=== PATIENT | female | born 2005 | race Two or more races ===

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

== ENCOUNTER 2025-02-02 11:18 | Observation (INO) | payer MEDICAID, SELFPAY ==
[2025-02-02] VITALS (11 sets, daily range): BP systolic 121–138; BP diastolic 77–89; PULSE 67–104; RESP 18–99; TEMP 36.6; O2SAT 99–100; BMI 39.6
[2025-02-02] MEDS: RINGERS LACTATED 1000 ML 1,000 ML 999 ML IV (11:45)
== END 2025-02-02 13:15 | disposition home or self-care (01) ==
PROVIDERS: Admitting Provider Obstetrics & Gynecology; PCP Nurse Practitioner Women's Health; Visit Provider Obstetrics & Gynecology
DX: Z34.03 Encounter for supervision of normal first pregnancy, third trimester (principal); Z3A.39 39 weeks gestation of pregnancy
CPT/HCPCS: 59899; G0378; J7120

== ENCOUNTER 2025-02-09 08:37 | Observation (INO) | payer MEDICAID, SELFPAY ==
[2025-02-09 08:45] VITALS: PULSE 66; O2SAT 99
[2025-02-09 08:47] VITALS: BP 126/83; PULSE 75
[2025-02-09 09:01] VITALS: BP 126/83; PULSE 75; RESP 18; RESP 99; TEMP 36.8; BMI 41.0
[2025-02-09 09:02] VITALS: RESP 18; TEMP 36.8; O2SAT 99
[2025-02-09] MEDS: RINGERS LACTATED 1000 ML 1,000 ML 999 ML IV (09:45)
[2025-02-09 09:46] VITALS: BP 126/86; PULSE 60
== END 2025-02-09 10:45 | disposition home or self-care (01) ==
PROVIDERS: Admitting Provider Obstetrics & Gynecology; Visit Provider Obstetrics & Gynecology
DX: O47.1 False labor at or after 37 completed weeks of gestation (principal); Z3A.40 40 weeks gestation of pregnancy
CPT/HCPCS: 59025; 59899; J7120

== ENCOUNTER 2025-02-09 21:29 | Inpatient (IN) | payer MEDICAID, SELFPAY ==
[2025-02-09] VITALS (17 sets, daily range): BP systolic 128–142; BP diastolic 78–95; PULSE 65–80; RESP 16–99; TEMP 36.6–36.8; O2SAT 98–100; BMI 40.8; BMI 40.9
[2025-02-09 23:31] LABS: Basophils # (Auto) 0.0 Thou/mm3 (0.0-0.2); Basophils % (Auto) 0 % (0-2.5); Eosinophils # (Auto) 0.0 Thou/mm3 (0.0-0.5); Eosinophils % (Auto) 0 % (0-10); Hematocrit 36.8 % (36.0-46.0); Hemoglobin 12.6 g/dL (12.0-16.0); Immature Granulocytes Auto 0.09 Thou/mm3 (0.00-0.00); Lymphocytes # (Auto) 2.7 Thou/mm3 (1.0-5.0); Lymphocytes % (Auto) 24 % (10-50); Mean Corpuscular HGB Conc 34.2 g/dl (31.0-37.0); Mean Corpuscular Hemoglobin 29.4 pg (25.0-35.0); Mean Corpuscular Volume 86 fL (80-100); Monocytes # (Auto) 0.7 Thou/mm3 (0.0-0.8); Monocytes % (Auto) 6 % (0-12); Neutrophils # (Auto) 7.8 Thou/mm3 (1.8-7.7); Neutrophils % (Auto) 69 % (37-80); Nucleated Red Blood Cell # 0.00 Thou/mm3 (0.00-0.00); Nucleated Red Blood Cell % 0 /100 WBC (0); Platelet Count 236 Thou/mm3 (140-440); RDW Standard Deviation 42.3 fL (36.4-46.3); Red Blood Count 4.29 Miln/mm3 (4.00-5.20); White Blood Count 11.4 Thou/mm3 (4.5-11.0)
[2025-02-09 23:54] LABS: Amphetamine/Metham Scrn,Ur OB Negative (Negative); Benzoylecgonine Screen, Ur OB Negative (Negative); Opiate Screen,Urine OB Negative (Negative); THC Screen,Urine OB Positive (Negative)
[2025-02-09 23:55] LABS: THC U Confirm* See Sep Rpt
[2025-02-10] VITALS (187 sets, daily range): BP systolic 94–208; BP diastolic 56–147; PULSE 57–149; RESP 17–20; TEMP 36.7–38; O2SAT 91–100
--- NOTE | 2025-02-10 00:05 | XR_ITS ---
Examination: Complete OB ultrasound greater than 14 weeks Date and time of exam: February 10, 2025, 0039 hours INDICATIONS: Patient in active labor today Findings: Viable intrauterine single fetus with single amniotic sac presentation Vertex Cardiac motion 130 bpm Placenta fundal grade 3 Umbilical cord insertion seen. Amniotic fluid index 6.0 cm Ovaries obscured by bowel gas. Composite estimated gestational age based on BPD, head circumference, abdominal circumference, femur length is 37 weeks 2 days Estimated weight 3044.7 g. Survey of intracranial anatomy, spinal anatomy, abdominal anatomy, four-chamber heart performed with no abnormalities identified. Impression: Viable intrauterine gestation vertex presentation.
[2025-02-10 00:15] LABS: Syphilis Nonreactive (Nonreactive)
[2025-02-10 01:33] LABS: Fibrinogen 519 mg/dL (175-375); INR 0.9 (0.9-1.3); Partial Thromboplastin Time 27.9 Seconds (22.0-36.0); Prothrombin Time 10.0 Seconds (9.0-12.2)
[2025-02-10 01:39] LABS: Alanine Aminotransferase < 7 U/L (10-49); Albumin, Serum 4.0 gm/dL (3.5-5.0); Albumin/Globulin Ratio 1.8 (1.2-2.2); Alkaline Phosphatase 147 U/L (46-116); Anion Gap 13 (7-16); Aspartate Amino Transferase 16 U/L (0-34); BUN/Creatinine Ratio 6 Ratio (12-20); Bilirubin,Total 0.4 mg/dL (0.3-1.2); Blood Urea Nitrogen < 5 mg/dL (9-23); Calcium 9.1 mg/dL (8.3-10.6); Calcium (Corrected) 9.1 mg/dL (8.5-10.1); Carbon Dioxide 19.5 mMol/L (20.0-31.0); Chloride 107 mMol/L (98-107); Creatinine (Component) 0.9 mg/dL (0.6-1.3); Estimated Creatinine Clearance 99.5 mL/min (>60); Globulin 2.2 gm/dL (2.3-3.5); Glucose 79 mg/dL (74-106); Osmolality,Calculated 273 (275-295); Potassium 3.7 mMol/L (3.4-5.1); Sodium 139 mMol/L (136-145); Total Protein 6.2 gm/dL (5.7-8.2); Uric Acid 5.8 mg/dL (3.1-7.8); eGFR > 60 See Note
[2025-02-10 02:29] LABS: Bilirubin,Urine Negative (Negative); Blood,Urine Negative (Negative); Clarity,Urine Clear (Clear/Hazy); Collection Type, Urine Clean Catch; Color,Urine Lt-Yellow (Lt Yel-Yel); Glucose, Urine Negative (Negative); Ketones,Urine 2+ (Negative); Leukocyte Esterase,Urine Negative (Negative); Nitrite,Urine Negative (Negative); PH,Urine 6.5 (5.0-7.0); Protein,Urine Negative (Neg - Trace); RBC,Urine 2 /hpf (0-3); Specific Gravity,Urine 1.009 (1.001-1.035); Squamous Epithelial Cell,Urine 1 /hpf (0-5); Urobilinogen,Urine Negative mg/dL (0.0-1.0); WBC,Urine 1 /hpf (0-5)
--- NOTE | 2025-02-10 02:48 | PRELIM_ITS ---
Obstetric ultrasound with Doppler. February 10, 2025 at 0039 hours Clinical history: Presentation. Comparison: None. Findings: There is a gravid uterus with a live fetus in vertex presentation of mean gestational age 37 weeks and 2 days (by biometry). cardiac activity is present at a heart rate of 130 beats per minute. The placenta is fundal in location, maturity grade 3. There is no evidence of placenta previa or retroplacental hemorrhage. Amniotic fluid is adequate (FARRUKH = 6.0 cm). Estimated weight is 3045 grams+/- 451 grams. No abnormalities by Doppler. Impression: Gravid uterus with a single live fetus in vertex presentation of mean gestational age 37 weeks 2 days. Report Electronically Signed By: Mark Parada 02/10/2025 2:47:12 AM [EST]
[2025-02-10] MEDS: RINGERS LACTATED 1000 ML 1,000 ML 100 ML IV ×4 (04:02→18:30)
--- NOTE | 2025-02-10 06:34 | PC.NURSE ---
02/09/25-02/10/25 RN precepting Med hernández RN, reviewed and agree with labor assessment progress charting.
--- NOTE | 2025-02-10 07:30 | ESHP_ITS ---
Documentation for date of: 02/10/25 OB Labor/Induct. HPI History of Present Illness Chief complaint: labor and leaking fluid : 1 Para: 0 Term pregnancies: 0 pregnancies: 0 Living children: 0 History of Abortions: Spontaneous and Elective: 0 History of Vaginal deliveries: 0 History of sections: No History of : No Date of last menstrual period: 05/18/24 DARRYL: 02/09/25 Gestational Age (weeks): 40 Gestational Age (days): 1 Gestational age based on last menstrual period: 38 History of present illness: 19-year-old 1 for complaints of leaking and increased contractions since 8:30 PM. Patient been followed at [facility] and her care. Her first visit 10 weeks. Poor dates. Last period May 18, 2024. This gave due date February 22, 2025. Patient's first ultrasound was in July and she was 10 weeks 2 days and this changes EDC to February 09, 2025. Denies social habits. Denies surgery. Denies chronic illness. Patient is O+, screen negative, RPR nonreactive, rubella nonimmune, hepatitis B negative HIV negative hep C negative. GC and Chlamydia were negative. Her 1 hour was negative. And GBS negative. History of Present Dating criteria: LMP confirmed by 1st trimester US Adequate Care: Yes Ultrasounds: normal 1st trimester US and normal mid trimester US Obstetrical complications: none Medical complications: none Labs Labs: Negative: RPR, Hepatitis B, Rubella Titre, HIV, Chlamydia and Gonorrhea and Unknown: Herpes Type 1, Herpes Type 2, Group Beta Strep and Covid- 19 Review of Systems Review of Systems Systems Reviewed: All systems reviewed, normal except as documented Past Medical History Surgical History SURGICAL: Negative Section Meds Home Medications and Allergies Home Medications ?Medication ?Instructions ?Recorded ?Confirmed ?Type folic acid 1 mg tablet 1 mg PO .QD 02/09/25 5 History vit no.95-ferrous 1 tab PO .QD 02/09/2502/09 History fumarate 28 mg-folic acid 800 mcg tablet () Allergies Allergy/AdvReac Type Severity Reaction Status Date / Time No Known Allergies Allergy Verified 02/09/25 21:35 OB Exam Physical Exam Vital signs: Temp Pulse Resp BP Pulse Ox 98.2 F 68 18 116/71 98 02/10/25 05:36 02/10/25 07:14 02/10/25 05:36 02/10/25 07:14 02/09/25 22:11 Narrative: Alert and oriented. Normal heart rate and rhythm. Lungs clear no wheezes. Gravid abdomen. Gynecoid pelvis. Estimated weight 7 and half pounds. Vaginal exam admission was 60%, 2, -3. Vertex. Leaking a small amount of clear fluid. Irregular contractions. heart rate category 1 with accelerations and moderate variability Detailed Labor and Delivery Exam Dilation (cm): 2 Effacement (%): 60 Cervix position: posterior station: -3 Consistency: soft Presentation: Vertex Cervical ripeness score: 4 Membranes: ruptured Amniotic fluid: clear Baseline heart rate: 145 monitor accelerations: 15x15 monitor decelerations: None extermination supervisor variability: Moderate (11-25) Contraction frequency (min): irreg Contraction duration (sec): 30 Tachysystole: No Contraction intensity: Moderate OB Results Labs 02/09/25 22:24 02/10/25 00:54 Labs: Short CBC 02/09/25 Range/Units 22:24 WBC 11.4 H (4.5-11.0) Thou/mm3 Hgb 12.6 (12.0-16.0) g/dL Hct 36.8 (36.0-46.0) % Plt Count 236 (140-440) Thou/mm3 BMP 02/10/25 00:54 Sodium 139 Potassium 3.7 Chloride 107 Carbon Dioxide 19.5 L BUN < 5 L Creatinine 0.9 Glucose 79 Calcium 9.1 Liver Function 02/10/25 Range/Units 00:54 Total Bilirubin 0.4 (0.3-1.2) mg/dL AST 16 (0-34) U/L ALT < 7 L (10-49) U/L Alkaline Phosphatase 147 H (46-116) U/L Albumin 4.0 (3.5-5.0) gm/dL Urine 02/10/25 Range/Units 02:50 Urine Color Lt-Yellow (Lt Yel-Yel) Urine Clarity Clear (Clear/Hazy) Urine pH 6.5 (5.0-7.0) Ur Specific Simpson 1.009 (1.001-1.035) Urine Protein Negative (Neg - Trace) Urine Glucose (UA) Negative (Negative) OB Assessment & Plan Assessment and Plan (1) Normal labor and delivery: Status: Acute Additional Plan Induction method: per misoprostol protocol Plan: induction, anticipate NVD and consult MD klein
--- NOTE | 2025-02-10 08:06 | PD.LDPN ---
Documentation for date of: 02/10/25 OB Labor Progress Note Pain Control Pain control: tolerating well Comments: Patient is a 19-year-old family healthcare patient admitted with questionable ruptured membranes allegedly in early labor. She is 1 to 2 cm dilated. She had Cytotec at 430 this morning and another 1 is ordered. Positive for marijuana on presentation. Baby vertex 3045 g. I did not examine the patient just met her this morning. The plan will be for another Cytotec at 830 and then I will check her at 1230. Pelvic Exam Dilation (cm): 1-2 Effacement (%): 70 station: -3 Amniotic membrane status: Leaking Contractions Monitor mode: External Contraction frequency: 2-5 Contraction intensity: Mild Status status: Category l Assessment and Plan Assessment: induction ongoing Plan OB labor note: continuous present management Comments: 50 ug Cytotec #1 given at 0430 50 ug Cytotec # 2 will be given at 0830. I will examine the patient at 1230 today.
[2025-02-10 10:39] LABS: ROM Kit Exp Date# 111527; ROM Kit Lot # 58102387; Rupture of Fetal Membranes Positive (Negative); Swb Mxed in Solvent 1 min? Yes
[2025-02-10] MEDS: fentaNYL CIT INJ 50 mCg/ML AMP 2ML 100 MCG IVP ×2 (11:56→14:48)
--- NOTE | 2025-02-10 17:20 | PD.LDPN ---
Documentation for date of: 02/10/25 OB Labor Progress Note Pain Control Pain control: epidural Pelvic Exam Dilation (cm): 3 Effacement (%): 80 station: -2 Amniotic membrane status: Ruptured Comments: Ruptured a forebag IUPC placed. Clear fluid noted. Contractions Monitor mode: External Contraction frequency: every 4-5 min Contraction intensity: Mild Status status: Category l Assessment and Plan Assessment: induction ongoing Plan OB labor note: continuous present management Comments: Ordered Cytotec No. 3 now. Then Pitocin augmentation. Patient with epidural. Start Ancef every 8 hours for prolonged rupture.
[2025-02-10] MEDS: ONDANSETRON INJ 2 MG/ML INJ 2 ML 4 MG IVP (20:32)
[2025-02-10] MEDS: ceFAZolin/D5W 2 GM IV 2 GM/100 ML BAG IV (22:00)
[2025-02-10] MEDS: OXYTOCIN in NS 30 units 30 UNIT/500 ML BAG IV (22:20)
[2025-02-10] MEDS: ACETAMINOPHEN 325 MG TABLET 650 MG PO (23:44)
[2025-02-11] VITALS (44 sets, daily range): BP systolic 121–168; BP diastolic 72–96; PULSE 62–193; RESP 15–18; TEMP 36.5–37.7; O2SAT 86–100
[2025-02-11] MEDS: OXYTOCIN in NS 20 units 20 UNIT/1,000 ML BAG 125 UNIT IV (00:30)
[2025-02-11] MEDS: IBUPROFEN TAB 400 MG TABLET 800 MG PO ×2 (02:40→12:06)
[2025-02-11] MEDS: BENZO/LANO/ALOE (Dermoplast) 60 GM CAN 1 SPRAY TOP (02:46)
[2025-02-11] MEDS: ceFAZolin/D5W 2 GM IV 2 GM/100 ML BAG IV ×3 (06:00→21:05)
[2025-02-11 06:35] LABS: Basophils # (Auto) 0.0 Thou/mm3 (0.0-0.2); Basophils % (Auto) 0 % (0-2.5); Eosinophils # (Auto) 0.0 Thou/mm3 (0.0-0.5); Eosinophils % (Auto) 0 % (0-10); Hematocrit 33.9 % (36.0-46.0); Hemoglobin 11.7 g/dL (12.0-16.0); Immature Granulocytes Auto 0.10 Thou/mm3 (0.00-0.00); Lymphocytes # (Auto) 1.4 Thou/mm3 (1.0-5.0); Lymphocytes % (Auto) 7 % (10-50); Mean Corpuscular HGB Conc 34.5 g/dl (31.0-37.0); Mean Corpuscular Hemoglobin 29.8 pg (25.0-35.0); Mean Corpuscular Volume 87 fL (80-100); Monocytes # (Auto) 1.2 Thou/mm3 (0.0-0.8); Monocytes % (Auto) 6 % (0-12); Neutrophils # (Auto) 16.6 Thou/mm3 (1.8-7.7); Neutrophils % (Auto) 86 % (37-80); Nucleated Red Blood Cell # 0.00 Thou/mm3 (0.00-0.00); Nucleated Red Blood Cell % 0 /100 WBC (0); Platelet Count 189 Thou/mm3 (140-440); RDW Standard Deviation 41.4 fL (36.4-46.3); Red Blood Count 3.92 Miln/mm3 (4.00-5.20); White Blood Count 19.4 Thou/mm3 (4.5-11.0)
--- NOTE | 2025-02-11 06:45 | PD.LDDELS ---
Data ([facility]) Data Hx Section: No Maternal Blood Type: O Pos Rubella Titre: Positive RPR: Non-reactive Labs: Negative: RPR, Hepatitis B, HIV, Chlamydia, Gonorrhea and Group Beta Strep : 1 Term: 0 : 0 Livin Abortions: Spontaneous & Theraputic: 0 Delivery Data ([facility]) Labor Data Initiation of labor: Spontaneous Induction/Augmentation Agent: Cytotec-PO ROM date: 02/10/25 ROM time: 01:30 Amniotic membrane rupture type: Spontaneous Amniotic fluid description: Blood Tinged Delivery Data EDC: 02/09/25 EDC calculated by:: LMP/early US confirmation Date of arrival to unit: 02/09/25 Onset of labor date: 02/10/25 Onset of labor time: 16:30 Complete dilation date: 02/10/25 Complete dilation time: 23:30 delivery date: 02/11/25 delivery time: 00:26 Gestational age (weeks): 40 Gestational age (days): 2 Placenta delivery date: 02/11/25 Placenta delivery time: 00:30 Stage 1 total time: Labor - Stage 1 Duration 7 hours and 0 minutes Delivered by: Delivery nurse: Aamir PHILLIPS [place] nurse: Arik Delacruz Salesperson [employer] at delivery: No Support person(s) at delivery: FOB Delivery Method Delivery method: Normal Vaginal Delivery Presentation: Vertex position: OA Anesthesia Type Anesthesia Type: Epidural Delivery Room Medications Delivery room medications: Pitocin 20 u IV Placenta Placenta delivery description: Spontaneous Cord blood sent to lab: Yes cord blood collection: Cord Blood Type, Arterial Cord Blood Gas and Venous Cord Blood Gas Episiotomy Episiotomy description: None Lacerations #1: Perineal: 1st degree Perineal repair Sutures used for repair: 3.0 Chromic EBL Estimated blood loss (ml): 150 Umbilical Cord cord description: 3 Vessels, Nuchal Cord and Loose Additional Procedures The patient is a 19-year-old G1, P0 with possible ruptured membranes induced on Cytotec x 5 doses. She had an epidural placed when she was 2 cm. She had Pitocin begun. She progressed to complete at 2330 0n 02/10/25. She labored down and began pushing about midnight and pushed approximately 30 minutes with me at bedside delivering a liveborn female at 0026 on 02/11/2025. Findings : Liveborn female in the COLLEEN presentation with a loose nuchal cord x 1 and light meconium along with terminal meconium. Apgars were 9 and 9 ,weight was 6 pounds 10 ounces . The placenta was complete ,spontaneous ,grossly normal. The patient sustained first-degree perineal laceration repaired in a standard fashion using 4-0 chromic. Complications were none. Condition : both mom and were in stable condition the delivery room. Of note blood gases were drawn on the baby at secondary to some grunting and pH umbilical artery was 7.26 with a base excess -8.6, pH umbilical vein 7.27 with base excess of -8.6. Complications Complications: None Blackey Data ([facility]) Data order: 1 Blackey's gender: Female Identification band number: [id number] weight (gms): 2930 g Weight (pounds): 6 lbs and 7.4 ozs length: 50.8 cm 1 minute: 9 5 minutes: 9
[2025-02-11] MEDS: DOCUSATE SOD 100 MG CAPSULE PO ×2 (08:00→21:05)
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
[2025-02-11] MEDS: ACETAMINOPHEN 325 MG TABLET 650 MG PO (17:40)
[2025-02-12 04:00] VITALS: BP 124/79; PULSE 67; RESP 18; TEMP 36.3; O2SAT 99
[2025-02-12] MEDS: ceFAZolin/D5W 2 GM IV 2 GM/100 ML BAG IV (05:10)
[2025-02-12] MEDS: ACETAMINOPHEN 325 MG TABLET 650 MG PO (05:12)
[2025-02-12 08:00] VITALS: BP 131/90; PULSE 66; RESP 16; TEMP 36.7; O2SAT 97
[2025-02-12] MEDS: DOCUSATE SOD 100 MG CAPSULE PO (08:36)
--- NOTE | 2025-02-12 16:03 | PD.LDDS ---
DS: Providers Provider Date of admission: 02/09/25 22:33 Primary care physician: Physician No Primary/Family Admitting Provider: Ousmane Dela Cruz MD Attending Provider on Admission: Kary Cook CNM Consults: 02/11/25 01:05 Referral Routine Comment: Attending Provider on DC: Carla Holt MD Discharging Provider: Carla Holt MD DS: Diagnosis Discharge Diagnosis (1) care and examination immediately after delivery: Status: Acute Problem List Completed Was Problem List Reviewed/Reconciled?: Yes Summary/Hosp Course Brief History: 19-year-old 1 for complaints of leaking and increased contractions since 8:30 PM. Patient been [facility] at [facility] and her care. Her first visit 10 weeks. Poor dates. Last period May 18, 2024. This gave due date February 22, 2025. Patient's first ultrasound was in July and she was 10 weeks 2 days and this changes EDC to February 09, 2025. Denies social habits. Denies surgery. Denies chronic illness. Patient is O+, screen negative, RPR nonreactive, rubella nonimmune, hepatitis B negative HIV negative hep C negative. GC and Chlamydia were negative. Her 1 hour was negative. And GBS negative. She is doing well s/p uncomplicated , delivering on 02/11/25. She has had an uncomplicated course, meeting all milestones and feels ready for discharge home. She is ambulating without lightheadedness, tolerating regular diet no n/v, spontaneously voiding without issue. She has no chest pain or shortness of breath. No fevers or chills. Minimal, appropriate discomfort. Vitals normal, benign exam. Hemodynamically stable with no evidence of infection. PP Hgb 11.7. Peripartum Data Delivery Method: Normal Vaginal Delivery Episiotomy Description: None Status at Discharge Functional status at discharge: independent ambulation Overall status at discharge: patient is back to baseline Time Spent with Patient Time attestation: Total time spent providing and/or coordinating discharge services: Exam Vital Signs Temp Pulse Resp BP Pulse Ox O2 Del Method 98.1 F 66 16 131/90 H 97 Room Air 02/12/25 08:00 02/12/25 08:00 02/12/25 08:00 02/12/25 08:00 02/12/25 08:00 02/12/25 08:00 Narrative Exam General: well developed, well nourished, no acute distress, conversant Cardiac: normal heart rate Lungs: breathing without distress Abdomen: soft, post-gravid, non-tender, no rebound or guarding, Fundus firm at u-3cm. Extremities: no pain with palpation of calves, trace edema of BLE Discharge Plan Plan Patient Disposition: HOME (Self Care) Patient condition on transfer: Stable Prescriptions/Referrals Prescriptions/Med Rec: New docusate sodium 100 mg Capsule 100 mg PO BID 10 Days Qty: 20 0RF ibuprofen 600 mg tablet 600 mg PO Q6H PRN (Reason: See Comments) 10 Days Qty: 20 0RF Continued folic acid 1 mg tablet 1 mg PO .QD Patient Comments: TAKE 1 TABLET BY MOUTH ONCE DAILY PNV no.95-ferrous fumarate-FA [] 28 mg iron- 800 mcg tablet 1 tab PO .QD Patient Comments: TAKE 1 TABLET BY MOUTH ONCE DAILY Referrals: No Primary/Family,Physician [Primary Care Provider] - Patient/Caregiver Discharge Instructions Discharge Activity: activity as tolerated and other Other Discharge Activity Instructions:: vaginal rest and no heavy lifting more than 10 pounds for 6 weeks Education Materials: After a Vaginal Print Language: Sinhala Activity Restrictions/Additional Instructions: follow up with your ob clinic in 2 to 4 weeks for visit, call for appointment Stand Alone Forms: [place] Award Info., Patient Portal Info Letter Discharge Order Discharge Orders: Discharge (Routine); Ordered 02/12/25 Ordered By: Carla Holt Planned Discharge Date 02/12/25
[2025-02-12 16:59] VITALS: BP 129/88; PULSE 80; RESP 16; TEMP 37.2
== END 2025-02-12 17:45 | disposition home or self-care (01) | DRG 560 ==
LOC: S4SX 02-10 07:26 → S4NX 02-11 03:41
PROVIDERS: Obstetrics & Gynecology; Admitting Provider Obstetrics & Gynecology; Visit Provider Advanced Practice Midwife
DX: O48.0 Post-term pregnancy (principal); O69.81X0 Labor and delivery complicated by cord around neck, without compression, not applicable or unspecified; Z37.0 Single live birth; Z3A.40 40 weeks gestation of pregnancy; O70.0 First degree perineal laceration during delivery; O77.0 Labor and delivery complicated by meconium in amniotic fluid
CPT/HCPCS: 36415; 59025; 59409; 76805; 80053; 80307; 81001; 84112; 84550; 85025; 85384; 85610; 85730; 86780; 86850; 86900; 86901; 90707; 94762; J0689; J2405; J2590; J2795; J3010; J7120; A9270